=== PATIENT | female | born 1935 | race Caucasian/White ===

== ENCOUNTER 2020-04-21 10:53 | Inpatient (IN) | payer MEDICAID, SELFPAY ==
[~2020-04-21] VITALS: Ht 152.4 cm; Wt 82.8 kg
[2020-04-21 11:51] LABS: BASOPHILS % 0.4 % (0.0-2.0); HEMATOCRIT. 42.6 % (36.0-48.0); HEMOGLOBIN. 14.1 g/dL (12.0-16.0); LYMPHOCYTES % 8.1 % (20.0-50.0); MEAN CORPUSCULAR HEMOGLOBIN 29.7 pg (28.0-32.0); MEAN CORPUSCULAR VOLUME 89.5 fL (81.0-99.0); MEAN PLATELET VOLUME 8.5 fl (7.4-10.4); MONOCYTES % 3.2 % (2.0-8.0); NEUTROPHILS % 88.3 % (40.0-76.0); PLATELET 349 x1000/uL (130-400); RED BLOOD CELL COUNT 4.75 mill/uL (4.2-5.4); RED CELL DISTRIBUTION WIDTH 14.6 % (11.6-14.6)
[2020-04-21 12:31] LABS: CLARITY URINE CLOUDY (CLEAR); COLOR URINE DARK YELLOW (YELLOW); KETONES URINE 1+ (NEGATIVE); LEUKOCYTE ESTERASE URINE 1+ (NEGATIVE); NITRITE URINE NEGATIVE (NEGATIVE); OCCULT BLOOD URINE TRACE (NEGATIVE); PROTEIN URINE 3+ (NEGATIVE)
[2020-04-21 13:01] LABS: BG BASE EXCESS -0.4 mmol/L (-2.0-2.0); BG CARBOXYHEMOGLOBIN 1.4 % (0.5-1.5); BG DEOXYHEMOGLOBIN 18.1 % (0.0-5.0); BG HCO3 ACT 23.5 mmol/L (22.0-26.0); BG OXYGEN SATURATION 81.6 % (92.0-98.5); BG OXYHEMOGLOBIN 80.5 % (94.0-97.0); BG PCO2 36.4 mmHg (35.0-45.0); BG PH 7.427 (7.350-7.450); BG SAMPLE SITE RIGHT RADIAL; BG TOTAL HEMOGLOBIN 14.9 g/dL (12.0-18.0)
[2020-04-21] MEDS ORDERED: MAGNESIUM/ALUMINUM HYDROXIDE/SIMETHICONE 30ML UDC PO PRN (13:30)
[2020-04-21] MEDS ORDERED: ACETAMINOPHEN 325MG TABLET PO PRN (13:30)
[2020-04-21] MEDS ORDERED: KETOROLAC 15MG/ML VIAL IV PRN (13:30)
[2020-04-21] MEDS ORDERED: ALBUTEROL 6.7GM HFA INHALER ORI PRN (13:30)
[2020-04-21] MEDS ORDERED: CLONIDINE 0.1MG TABLET PO PRN (13:30)
[2020-04-21] MEDS ORDERED: NITROGLYCERIN 0.4MG TABLET SL SL PRN (13:30)
[2020-04-21] MEDS ORDERED: ENOXAPARIN 40MG/0.4ML SYR SUBCUT SCH (13:30)
[2020-04-21] MEDS ORDERED: DOCUSATE SODIUM 100MG CAPSULE PO PRN (13:30)
[2020-04-21] MEDS ORDERED: ONDANSETRON HCL 4MG/2ML INJ IV PRN (13:30)
[2020-04-21] MEDS: DEXAMETHASONE 10 MG/ML VIAL IV SCH (14:00)
[2020-04-21] MEDS ORDERED: AZITHROMYCIN 500 MG in DEXT 5% WATER 250 ML IV SCH (14:00)
[2020-04-21] MEDS ORDERED: CEFTRIAXONE 1 G PREMIX 50 ML IV SCH (14:00)
[2020-04-21 14:51] LABS: CHLORIDE 101 mEq/L (98-107)
[2020-04-21 15:00] LABS: CREATINE KINASE 110 IU/L (26-192); CREATINE KINASE MB FRACTION 3.2 ng/mL (0.5-3.6)
[2020-04-21 15:01] LABS: D-DIMER 6.67 mg/L FEU (<0.50); PROTHROMBIN TIME 10.6 sec (9.6-11.0)
[2020-04-21] MEDS: ALBUTEROL 6.7GM HFA INHALER ORI SCH ×2 (15:30→20:26)
[2020-04-21] MEDS: DILTIAZEM HCL 60MG TABLET PO SCH (18:00)
[2020-04-21] MEDS: GUAIFENESIN/DM 600MG/30MG ER TAB 12HR PO SCH (21:00)
[2020-04-21] MEDS: FAMOTIDINE 20MG TABLET PO SCH (21:00)
[2020-04-21] MEDS: ASCORBIC ACID 500 MG TABLET PO SCH (21:00)
[2020-04-22] MEDS: ENOXAPARIN 30MG/0.3ML SYR SUBCUT SCH ×2 (04:58→11:04)
[2020-04-22] MEDS: ZOLPIDEM TARTRATE 5MG TABLET PO PRN (05:15)
[2020-04-22] MEDS: DILTIAZEM HCL 60MG TABLET PO SCH ×4 (05:57→17:44)
[2020-04-22] MEDS: ALBUTEROL 6.7GM HFA INHALER ORI SCH ×4 (08:40→21:20)
[2020-04-22] MEDS: FAMOTIDINE 20MG TABLET PO SCH ×2 (09:00→21:00)
[2020-04-22] MEDS: GUAIFENESIN/DM 600MG/30MG ER TAB 12HR PO SCH ×2 (09:00→21:00)
[2020-04-22] MEDS: ASCORBIC ACID 500 MG TABLET PO SCH ×2 (09:00→21:00)
[2020-04-22] MEDS: ZINC SULFATE 220 MG ( 50 ) CAPSULE PO SCH (09:00)
[2020-04-22] MEDS: ASPIRIN 325MG EC TABLET PO SCH (09:00)
[2020-04-22 09:50] VITALS: BP 124/65
[2020-04-22 10:30] VITALS: BP 109/50
[2020-04-22] MEDS ORDERED: FUROSEMIDE 40MG/4ML VIAL IVP NR (10:30)
[2020-04-22] MEDS: DEXAMETHASONE 10 MG/ML VIAL IV SCH (10:58)
[2020-04-22 11:08] LABS: BG BASE EXCESS 4.1 mmol/L (-2.0-2.0); BG CARBOXYHEMOGLOBIN 0.9 % (0.5-1.5); BG DEOXYHEMOGLOBIN 12.3 % (0.0-5.0); BG FRACTION INSPIRED OXYGEN 100; BG HCO3 ACT 28.6 mmol/L (22.0-26.0); BG OXYGEN SATURATION 87.6 % (92.0-98.5); BG OXYHEMOGLOBIN 86.8 % (94.0-97.0); BG PCO2 42.3 mmHg (35.0-45.0); BG PH 7.448 (7.350-7.450); BG PO2 52.7 mmHg (75.0-100.0); BG SAMPLE SITE RIGHT BRACHIAL; BG TOTAL HEMOGLOBIN 14.2 g/dL (12.0-18.0); BG TOTAL RESPIRATORY RATE 25 b/min; BG VENT MODE MASK - BIPAP
[2020-04-22 12:00] VITALS: BP 111/64
[2020-04-22] MEDS: AZITHROMYCIN 500 MG in DEXT 5% WATER 250 ML IV SCH (13:39)
[2020-04-22] MEDS: CEFTRIAXONE 1,000 MG in DEXTROSE 5% WATER 50 ML IV SCH (13:40)
[2020-04-22 16:00] VITALS: BP 128/50
[2020-04-22] MEDS ORDERED: AMLO5TAB88 MT (18:40)
[2020-04-22] MEDS ORDERED: TELM80TA8 MT (18:40)
[2020-04-22 20:00] VITALS: BP 139/75
[2020-04-22] MEDS: ENOXAPARIN 40MG/0.4ML SYR SUBCUT SCH (21:06)
[2020-04-23] VITALS: BP 148/65
[2020-04-23] MEDS: ALBUTEROL 6.7GM HFA INHALER ORI SCH ×4 (00:20→13:28)
[2020-04-23 04:00] VITALS: BP 124/61
[2020-04-23] MEDS: DILTIAZEM HCL 60MG TABLET PO SCH ×4 (05:28→17:59)
[2020-04-23 08:00] VITALS: BP 140/59
[2020-04-23] MEDS: DEXAMETHASONE 10 MG/ML VIAL IV SCH (08:47)
[2020-04-23] MEDS: ENOXAPARIN 40MG/0.4ML SYR SUBCUT SCH (08:49)
[2020-04-23] MEDS: GUAIFENESIN/DM 600MG/30MG ER TAB 12HR PO SCH ×2 (10:31→21:00)
[2020-04-23] MEDS: ZINC SULFATE 220 MG ( 50 ) CAPSULE PO SCH (10:31)
[2020-04-23] MEDS: ASCORBIC ACID 500 MG TABLET PO SCH ×2 (10:31→20:39)
[2020-04-23] MEDS: FAMOTIDINE 20MG TABLET PO SCH ×2 (10:31→20:39)
[2020-04-23] MEDS: ASPIRIN 325MG EC TABLET PO SCH (10:31)
[2020-04-23] MEDS: CEFTRIAXONE 1,000 MG in DEXTROSE 5% WATER 50 ML IV SCH (14:19)
[2020-04-23] MEDS: AZITHROMYCIN 500 MG in DEXT 5% WATER 250 ML IV SCH (15:09)
[2020-04-23 16:00] VITALS: BP 129/67
[2020-04-23] MEDS: GUAIFENESIN 200MG/10ML SUGAR FREE UDC PO PRN (23:22)
[2020-04-23] MEDS: ENOXAPARIN 30MG/0.3ML SYR SUBCUT SCH (23:22)
[2020-04-24 01:00] VITALS: BP 124/51
[2020-04-24] MEDS: DILTIAZEM HCL 60MG TABLET PO SCH ×4 (06:17→18:12)
[2020-04-24] MEDS: ALBUTEROL 6.7GM HFA INHALER ORI SCH ×4 (07:40→21:40)
[2020-04-24 08:00] VITALS: BP 158/62
[2020-04-24] MEDS: GUAIFENESIN/DM 600MG/30MG ER TAB 12HR PO SCH ×2 (09:00→21:00)
[2020-04-24] MEDS: DEXAMETHASONE 10 MG/ML VIAL IV SCH (10:44)
[2020-04-24] MEDS: ASPIRIN 325MG EC TABLET PO SCH (10:44)
[2020-04-24] MEDS: ENOXAPARIN 30MG/0.3ML SYR SUBCUT SCH ×2 (10:44→21:36)
[2020-04-24] MEDS: FAMOTIDINE 20MG TABLET PO SCH ×2 (10:44→21:35)
[2020-04-24] MEDS: ZINC SULFATE 220 MG ( 50 ) CAPSULE PO SCH (10:45)
[2020-04-24 12:00] VITALS: BP 123/73
[2020-04-24] MEDS: ASCORBIC ACID 500 MG TABLET PO SCH ×2 (15:12→21:35)
[2020-04-24] MEDS: CEFTRIAXONE 1,000 MG in DEXTROSE 5% WATER 50 ML IV SCH (15:13)
[2020-04-24 16:00] VITALS: BP 146/57
[2020-04-24] MEDS: AZITHROMYCIN 500 MG in DEXT 5% WATER 250 ML IV SCH (16:40)
[2020-04-24 20:00] VITALS: BP 133/62
[2020-04-25] VITALS: BP 143/65
[2020-04-25] MEDS: ALBUTEROL 6.7GM HFA INHALER ORI SCH ×4 (01:18→21:22)
[2020-04-25 04:00] VITALS: BP 143/65
[2020-04-25] MEDS: DILTIAZEM HCL 60MG TABLET PO SCH ×5 (06:46→18:00)
[2020-04-25 07:40] LABS: HEMATOCRIT. 42.2 % (36.0-48.0); HEMOGLOBIN. 13.5 g/dL (12.0-16.0); MEAN CORPUSCULAR HEMOGLOBIN 29.3 pg (28.0-32.0); MEAN CORPUSCULAR VOLUME 91.4 fL (81.0-99.0); MEAN PLATELET VOLUME 9.2 fl (7.4-10.4); PLATELET 264 x1000/uL (130-400); RED BLOOD CELL COUNT 4.62 mill/uL (4.2-5.4); RED CELL DISTRIBUTION WIDTH 14.3 % (11.6-14.6)
[2020-04-25 08:00] VITALS: BP 152/63
[2020-04-25 08:52] LABS: CHLORIDE 106 mEq/L (98-107)
[2020-04-25] MEDS: DEXAMETHASONE 10 MG/ML VIAL IV SCH (09:13)
[2020-04-25] MEDS: ASPIRIN 325MG EC TABLET PO SCH (09:13)
[2020-04-25] MEDS: FAMOTIDINE 20MG TABLET PO SCH ×2 (09:13→21:21)
[2020-04-25] MEDS: GUAIFENESIN/DM 600MG/30MG ER TAB 12HR PO SCH ×2 (09:13→21:00)
[2020-04-25] MEDS: ZINC SULFATE 220 MG ( 50 ) CAPSULE PO SCH (09:13)
[2020-04-25] MEDS: GUAIFENESIN 200MG/10ML SUGAR FREE UDC PO PRN (09:13)
[2020-04-25] MEDS: ASCORBIC ACID 500 MG TABLET PO SCH ×2 (09:13→21:21)
[2020-04-25] MEDS: ENOXAPARIN 30MG/0.3ML SYR SUBCUT SCH ×2 (09:14→21:21)
[2020-04-25 11:53] LABS: BG BASE EXCESS 2.3 mmol/L (-2.0-2.0); BG CARBOXYHEMOGLOBIN 0.8 % (0.5-1.5); BG DEOXYHEMOGLOBIN 5.7 % (0.0-5.0); BG FRACTION INSPIRED OXYGEN 90; BG HCO3 ACT 26.3 mmol/L (22.0-26.0); BG METHEMOGLOBIN 0.3 % (0.0-1.5); BG OXYGEN SATURATION 94.2 % (92.0-98.5); BG OXYHEMOGLOBIN 93.2 % (94.0-97.0); BG PH 7.447 (7.350-7.450); BG PO2 71.7 mmHg (75.0-100.0); BG SAMPLE SITE RIGHT BRACHIAL; BG TOTAL HEMOGLOBIN 13.6 g/dL (12.0-18.0); BG TOTAL RESPIRATORY RATE 24 b/min
[2020-04-25 12:00] VITALS: BP 138/76
[2020-04-25] MEDS: AZITHROMYCIN 500 MG in DEXT 5% WATER 250 ML IV SCH (15:25)
[2020-04-25 16:00] VITALS: BP 138/76
[2020-04-25] MEDS: CEFTRIAXONE 1,000 MG in DEXTROSE 5% WATER 50 ML IV SCH (18:42)
[2020-04-25 20:00] VITALS: BP 126/60
[2020-04-26] VITALS: BP 120/94
[2020-04-26] MEDS: ZOLPIDEM TARTRATE 5MG TABLET PO PRN (01:42)
[2020-04-26] MEDS: DILTIAZEM HCL 60MG TABLET PO SCH ×4 (01:42→18:00)
[2020-04-26 04:00] VITALS: BP 146/61
[2020-04-26] MEDS: ALBUTEROL 6.7GM HFA INHALER ORI SCH ×4 (06:01→21:29)
[2020-04-26 08:00] VITALS: BP 112/61
[2020-04-26] MEDS: DEXAMETHASONE 10 MG/ML VIAL IV SCH (09:00)
[2020-04-26] MEDS: GUAIFENESIN/DM 600MG/30MG ER TAB 12HR PO SCH ×2 (09:00→21:00)
[2020-04-26] MEDS: ENOXAPARIN 30MG/0.3ML SYR SUBCUT SCH ×2 (10:22→23:01)
[2020-04-26] MEDS: FAMOTIDINE 20MG TABLET PO SCH ×2 (10:22→23:00)
[2020-04-26] MEDS: ASCORBIC ACID 500 MG TABLET PO SCH ×2 (10:22→23:00)
[2020-04-26] MEDS: ASPIRIN 325MG EC TABLET PO SCH (10:23)
[2020-04-26] MEDS: ZINC SULFATE 220 MG ( 50 ) CAPSULE PO SCH (10:23)
[2020-04-26 12:00] VITALS: BP 151/74
[2020-04-26 14:49] LABS: PLATELET ESTIMATE NORMAL
[2020-04-26 16:00] VITALS: BP_SYST 156
[2020-04-26 20:00] VITALS: BP 131/56
[2020-04-27] VITALS: BP 136/52
[2020-04-27] MEDS: DILTIAZEM HCL 60MG TABLET PO SCH ×4 (00:52→18:16)
[2020-04-27 04:00] VITALS: BP 132/48
[2020-04-27] MEDS: ALBUTEROL 6.7GM HFA INHALER ORI SCH ×4 (04:29→21:48)
[2020-04-27 08:00] VITALS: BP 147/53
[2020-04-27] MEDS: GUAIFENESIN/DM 600MG/30MG ER TAB 12HR PO SCH ×2 (09:00→21:00)
[2020-04-27] MEDS: ZINC SULFATE 220 MG ( 50 ) CAPSULE PO SCH (11:22)
[2020-04-27] MEDS: FAMOTIDINE 20MG TABLET PO SCH ×2 (11:22→22:52)
[2020-04-27] MEDS: ASPIRIN 325MG EC TABLET PO SCH (11:22)
[2020-04-27] MEDS: ASCORBIC ACID 500 MG TABLET PO SCH ×2 (11:22→22:52)
[2020-04-27] MEDS: DEXAMETHASONE 10 MG/ML VIAL IV SCH (11:22)
[2020-04-27] MEDS: ENOXAPARIN 30MG/0.3ML SYR SUBCUT SCH ×2 (11:23→22:52)
[2020-04-27 12:00] VITALS: BP 132/53
[2020-04-27 16:00] VITALS: BP 129/49
[2020-04-27 20:00] VITALS: BP 125/55
[2020-04-28] VITALS: BP 155/65
[2020-04-28] MEDS: ALBUTEROL 6.7GM HFA INHALER ORI SCH ×4 (01:44→21:44)
[2020-04-28 04:00] VITALS: BP 117/59
[2020-04-28] MEDS: DILTIAZEM HCL 60MG TABLET PO SCH ×4 (06:00→18:00)
[2020-04-28 08:00] VITALS: BP 125/66
[2020-04-28] MEDS: GUAIFENESIN/DM 600MG/30MG ER TAB 12HR PO SCH ×2 (08:58→23:14)
[2020-04-28] MEDS: FAMOTIDINE 20MG TABLET PO SCH ×2 (08:58→23:13)
[2020-04-28] MEDS: ENOXAPARIN 30MG/0.3ML SYR SUBCUT SCH ×2 (08:58→23:13)
[2020-04-28] MEDS: ASPIRIN 325MG EC TABLET PO SCH (08:58)
[2020-04-28] MEDS: ZINC SULFATE 220 MG ( 50 ) CAPSULE PO SCH (08:58)
[2020-04-28] MEDS: ASCORBIC ACID 500 MG TABLET PO SCH ×2 (08:58→23:13)
[2020-04-28] MEDS: DEXAMETHASONE 10 MG/ML VIAL IV SCH (09:18)
[2020-04-28 11:27] LABS: BG BASE EXCESS 4.4 mmol/L (-2.0-2.0); BG CARBOXYHEMOGLOBIN 0.6 % (0.5-1.5); BG DEOXYHEMOGLOBIN 2.1 % (0.0-5.0); BG FRACTION INSPIRED OXYGEN 90; BG HCO3 ACT 30.7 mmol/L (22.0-26.0); BG METHEMOGLOBIN 0.2 % (0.0-1.5); BG OXYGEN SATURATION 97.9 % (92.0-98.5); BG OXYHEMOGLOBIN 97.1 % (94.0-97.0); BG PCO2 52.8 mmHg (35.0-45.0); BG PH 7.382 (7.350-7.450); BG PO2 111.6 mmHg (75.0-100.0); BG SAMPLE SITE RIGHT RADIAL; BG TOTAL HEMOGLOBIN 13.6 g/dL (12.0-18.0); BG TOTAL RESPIRATORY RATE 28 b/min; BG VENT MODE MASK - BIPAP
[2020-04-28 12:00] VITALS: BP 147/69
[2020-04-28 16:00] VITALS: BP 132/72
[2020-04-28 20:00] VITALS: BP 124/58
[2020-04-29 00:18] VITALS: BP 112/52
[2020-04-29 04:00] VITALS: BP 116/78
[2020-04-29] MEDS: ALBUTEROL 6.7GM HFA INHALER ORI SCH ×5 (05:25→21:46)
[2020-04-29] MEDS: DILTIAZEM HCL 60MG TABLET PO SCH ×4 (06:04→16:59)
[2020-04-29 08:00] VITALS: BP 126/58
[2020-04-29] MEDS: ASCORBIC ACID 500 MG TABLET PO SCH ×2 (10:29→21:39)
[2020-04-29] MEDS: GUAIFENESIN/DM 600MG/30MG ER TAB 12HR PO SCH ×2 (10:29→21:39)
[2020-04-29] MEDS: ASPIRIN 325MG EC TABLET PO SCH (10:29)
[2020-04-29] MEDS: ENOXAPARIN 30MG/0.3ML SYR SUBCUT SCH ×2 (10:30→21:39)
[2020-04-29] MEDS: ZINC SULFATE 220 MG ( 50 ) CAPSULE PO SCH (10:30)
[2020-04-29] MEDS: FAMOTIDINE 20MG TABLET PO SCH ×2 (10:30→21:39)
[2020-04-29] MEDS: DEXAMETHASONE 10 MG/ML VIAL IV SCH (10:31)
[2020-04-29 12:00] VITALS: BP 133/54
[2020-04-29 16:00] VITALS: BP 111/42
[2020-04-29 20:00] VITALS: BP_SYST 149; BP_SYST 154; BP_DIAS 69; BP_DIAS 81
[2020-04-30] VITALS: BP 134/44
[2020-04-30] MEDS: DILTIAZEM HCL 60MG TABLET PO SCH ×4 (00:41→18:00)
[2020-04-30 04:00] VITALS: BP 132/66
[2020-04-30] MEDS: ALBUTEROL 6.7GM HFA INHALER ORI SCH ×4 (04:50→22:37)
[2020-04-30 08:00] VITALS: BP 149/62
[2020-04-30] MEDS: ZINC SULFATE 220 MG ( 50 ) CAPSULE PO SCH (08:46)
[2020-04-30] MEDS: DEXAMETHASONE 10 MG/ML VIAL IV SCH (08:46)
[2020-04-30] MEDS: ENOXAPARIN 30MG/0.3ML SYR SUBCUT SCH ×2 (08:47→21:35)
[2020-04-30] MEDS: GUAIFENESIN/DM 600MG/30MG ER TAB 12HR PO SCH ×2 (08:47→21:34)
[2020-04-30] MEDS: ASCORBIC ACID 500 MG TABLET PO SCH ×2 (08:47→21:34)
[2020-04-30] MEDS: FAMOTIDINE 20MG TABLET PO SCH ×2 (08:47→21:34)
[2020-04-30] MEDS: ASPIRIN 325MG EC TABLET PO SCH (08:47)
[2020-04-30 12:00] VITALS: BP 166/56
[2020-04-30 16:00] VITALS: BP 122/36
[2020-04-30 20:00] VITALS: BP 127/61
[2020-05-01] VITALS: BP 128/66
[2020-05-01] MEDS: DILTIAZEM HCL 60MG TABLET PO SCH ×3 (00:42→12:00)
[2020-05-01] MEDS: ALBUTEROL 6.7GM HFA INHALER ORI SCH ×4 (01:38→21:00)
[2020-05-01 04:00] VITALS: BP 132/67
[2020-05-01 08:00] VITALS: BP 141/53
[2020-05-01] MEDS: DEXAMETHASONE 10 MG/ML VIAL IV SCH (10:05)
[2020-05-01] MEDS: GUAIFENESIN/DM 600MG/30MG ER TAB 12HR PO SCH ×2 (10:05→20:08)
[2020-05-01] MEDS: FAMOTIDINE 20MG TABLET PO SCH ×2 (10:05→20:09)
[2020-05-01] MEDS: ASPIRIN 325MG EC TABLET PO SCH (10:06)
[2020-05-01] MEDS: ZINC SULFATE 220 MG ( 50 ) CAPSULE PO SCH (10:06)
[2020-05-01] MEDS: ASCORBIC ACID 500 MG TABLET PO SCH ×2 (10:06→20:09)
[2020-05-01] MEDS: ENOXAPARIN 30MG/0.3ML SYR SUBCUT SCH ×2 (10:07→20:09)
[2020-05-01 12:00] VITALS: BP 152/68
[2020-05-01] MEDS ORDERED: CLONIDINE 0.1MG TABLET PO PRN (13:15)
[2020-05-01] MEDS: HYDRALAZINE HCL 50MG TABLET PO SCH ×2 (15:16→22:13)
[2020-05-01 16:00] VITALS: BP 149/62
[2020-05-01 20:00] VITALS: BP 98/51
[2020-05-02] VITALS: BP 153/51
[2020-05-02 04:00] VITALS: BP 164/85
[2020-05-02] MEDS: ALBUTEROL 6.7GM HFA INHALER ORI SCH ×5 (05:10→21:37)
[2020-05-02] MEDS: HYDRALAZINE HCL 50MG TABLET PO SCH ×3 (06:40→21:58)
[2020-05-02 08:00] VITALS: BP 140/71
[2020-05-02] MEDS: ZINC SULFATE 220 MG ( 50 ) CAPSULE PO SCH (08:51)
[2020-05-02] MEDS: GUAIFENESIN/DM 600MG/30MG ER TAB 12HR PO SCH ×2 (08:51→21:58)
[2020-05-02] MEDS: ASPIRIN 325MG EC TABLET PO SCH (08:51)
[2020-05-02] MEDS: FAMOTIDINE 20MG TABLET PO SCH ×2 (08:51→21:58)
[2020-05-02] MEDS: DEXAMETHASONE 10 MG/ML VIAL IV SCH (08:51)
[2020-05-02] MEDS: ASCORBIC ACID 500 MG TABLET PO SCH ×2 (08:51→21:58)
[2020-05-02] MEDS: ENOXAPARIN 40MG/0.4ML SYR SUBCUT SCH (08:53)
[2020-05-02 12:00] VITALS: BP 134/69
[2020-05-02 16:00] VITALS: BP 132/71
[2020-05-02 20:00] VITALS: BP 124/50
[2020-05-03] VITALS: BP 108/53
[2020-05-03] MEDS: ALBUTEROL 6.7GM HFA INHALER ORI SCH ×3 (02:17→14:05)
[2020-05-03 04:00] VITALS: BP 151/60
[2020-05-03] MEDS: HYDRALAZINE HCL 50MG TABLET PO SCH ×3 (05:50→22:33)
[2020-05-03] MEDS: ENOXAPARIN 40MG/0.4ML SYR SUBCUT SCH (07:55)
[2020-05-03] MEDS: ASCORBIC ACID 500 MG TABLET PO SCH ×2 (07:56→22:33)
[2020-05-03] MEDS: ASPIRIN 325MG EC TABLET PO SCH (07:56)
[2020-05-03] MEDS: ZINC SULFATE 220 MG ( 50 ) CAPSULE PO SCH (07:56)
[2020-05-03] MEDS: DEXAMETHASONE 10 MG/ML VIAL IV SCH (07:56)
[2020-05-03] MEDS: FAMOTIDINE 20MG TABLET PO SCH ×2 (07:56→22:34)
[2020-05-03] MEDS: GUAIFENESIN/DM 600MG/30MG ER TAB 12HR PO SCH ×2 (07:56→22:33)
[2020-05-03 08:00] VITALS: BP 140/82
[2020-05-03 12:00] VITALS: BP 120/48
[2020-05-03 16:00] VITALS: BP 129/60
[2020-05-03 20:00] VITALS: BP 125/54
[2020-05-04] VITALS: BP 122/50
[2020-05-04] MEDS: ALBUTEROL 6.7GM HFA INHALER ORI SCH ×4 (02:50→13:17)
[2020-05-04 04:00] VITALS: BP 126/52
[2020-05-04] MEDS: HYDRALAZINE HCL 50MG TABLET PO SCH ×3 (05:12→21:46)
[2020-05-04 08:00] VITALS: BP 121/48
[2020-05-04] MEDS: ENOXAPARIN 40MG/0.4ML SYR SUBCUT SCH (08:23)
[2020-05-04] MEDS: GUAIFENESIN/DM 600MG/30MG ER TAB 12HR PO SCH ×2 (08:24→20:27)
[2020-05-04] MEDS: ZINC SULFATE 220 MG ( 50 ) CAPSULE PO SCH (08:24)
[2020-05-04] MEDS: FAMOTIDINE 20MG TABLET PO SCH ×2 (08:24→20:27)
[2020-05-04] MEDS: ASPIRIN 325MG EC TABLET PO SCH (08:24)
[2020-05-04] MEDS: ASCORBIC ACID 500 MG TABLET PO SCH ×2 (08:26→20:27)
[2020-05-04 12:00] VITALS: BP 101/50
[2020-05-04 16:00] VITALS: BP 118/58
[2020-05-04] MEDS ORDERED: FENTANYL CITRATE/PF 1,000 MCG in SODIUM CHLORIDE 0.9% 80 ML IV PRN (17:00)
[2020-05-04] MEDS ORDERED: MIDAZOLAM HCL 100 MG in DEXT 5% WATER 80 ML IV PRN (17:00)
[2020-05-04 20:00] VITALS: BP 122/63
[2020-05-05] VITALS: BP 129/70
[2020-05-05] MEDS: ALBUTEROL 6.7GM HFA INHALER ORI SCH ×3 (04:20→15:00)
[2020-05-05] MEDS: HYDRALAZINE HCL 50MG TABLET PO SCH ×3 (06:00→21:39)
[2020-05-05 07:42] LABS: HEMATOCRIT. 39.6 % (36.0-48.0); MEAN CORPUSCULAR HEMOGLOBIN 29.6 pg (28.0-32.0); MEAN CORPUSCULAR VOLUME 90.4 fL (81.0-99.0); MEAN PLATELET VOLUME 10.3 fl (7.4-10.4); PLATELET 211 x1000/uL (130-400); RED BLOOD CELL COUNT 4.39 mill/uL (4.2-5.4); RED CELL DISTRIBUTION WIDTH 14.5 % (11.6-14.6)
[2020-05-05 08:00] VITALS: BP 116/55
[2020-05-05] MEDS: FAMOTIDINE 20MG TABLET PO SCH ×2 (08:48→21:38)
[2020-05-05] MEDS: GUAIFENESIN/DM 600MG/30MG ER TAB 12HR PO SCH ×2 (08:48→21:39)
[2020-05-05] MEDS: ASPIRIN 325MG EC TABLET PO SCH (08:48)
[2020-05-05] MEDS: ASCORBIC ACID 500 MG TABLET PO SCH ×2 (08:48→21:39)
[2020-05-05] MEDS: ZINC SULFATE 220 MG ( 50 ) CAPSULE PO SCH (08:48)
[2020-05-05] MEDS: ENOXAPARIN 40MG/0.4ML SYR SUBCUT SCH ×2 (08:49→09:00)
[2020-05-05 12:00] VITALS: BP 123/49
[2020-05-05 14:31] LABS: BG CARBOXYHEMOGLOBIN 0.3 % (0.5-1.5); BG DEOXYHEMOGLOBIN 2.2 % (0.0-5.0); BG FRACTION INSPIRED OXYGEN 60; BG HCO3 ACT 25.1 mmol/L (22.0-26.0); BG METHEMOGLOBIN 0.1 % (0.0-1.5); BG OXYGEN SATURATION 97.8 % (92.0-98.5); BG OXYHEMOGLOBIN 97.4 % (94.0-97.0); BG PCO2 38.3 mmHg (35.0-45.0); BG PH 7.434 (7.350-7.450); BG PO2 107.5 mmHg (75.0-100.0); BG SAMPLE SITE RIGHT RADIAL; BG TOTAL HEMOGLOBIN 13.8 g/dL (12.0-18.0); BG TOTAL RESPIRATORY RATE 24 b/min; BG VENT MODE MASK - BIPAP
[2020-05-05 16:00] VITALS: BP 123/49
[2020-05-05 18:01] LABS: PLATELET ESTIMATE NORMAL
[2020-05-05 20:00] VITALS: BP 110/58
[2020-05-06] VITALS: BP 96/52
[2020-05-06 04:00] VITALS: BP 128/54
[2020-05-06] MEDS: HYDRALAZINE HCL 50MG TABLET PO SCH ×3 (05:48→21:37)
[2020-05-06 08:00] VITALS: BP 134/73
[2020-05-06] MEDS: ZINC SULFATE 220 MG ( 50 ) CAPSULE PO SCH (08:36)
[2020-05-06] MEDS: ENOXAPARIN 40MG/0.4ML SYR SUBCUT SCH (08:36)
[2020-05-06] MEDS: ASCORBIC ACID 500 MG TABLET PO SCH ×2 (08:36→21:37)
[2020-05-06] MEDS: ASPIRIN 325MG EC TABLET PO SCH (08:36)
[2020-05-06] MEDS: GUAIFENESIN/DM 600MG/30MG ER TAB 12HR PO SCH ×2 (08:37→21:00)
[2020-05-06] MEDS: FAMOTIDINE 20MG TABLET PO SCH ×2 (08:37→21:37)
[2020-05-06] MEDS: ALBUTEROL 6.7GM HFA INHALER ORI SCH ×3 (08:37→21:35)
[2020-05-06 12:00] VITALS: BP 142/64
[2020-05-06 16:00] VITALS: BP 132/48
[2020-05-06 20:00] VITALS: BP 141/58
[2020-05-07] VITALS: BP 136/58
[2020-05-07] MEDS: ALBUTEROL 6.7GM HFA INHALER ORI SCH ×4 (03:00→21:00)
[2020-05-07 04:00] VITALS: BP 152/86
[2020-05-07 05:37] LABS: CHLORIDE 105 mEq/L (98-107)
[2020-05-07] MEDS: HYDRALAZINE HCL 50MG TABLET PO SCH ×2 (05:57→14:00)
[2020-05-07 06:26] LABS: HEMATOCRIT 39.8 % (36.0-48.0); HEMOGLOBIN 13.4 g/dL (12.0-16.0); MEAN CORPUSCULAR HEMOGLOBIN 30.4 pg (28.0-32.0); MEAN CORPUSCULAR VOLUME 90.4 fL (81.0-99.0); PLATELET 206 x1000/uL (130-400); RED BLOOD CELL COUNT 4.41 mill/uL (4.2-5.4); RED CELL DISTRIBUTION WIDTH 14.4 % (11.6-14.6)
[2020-05-07 08:00] VITALS: BP_SYST 105; BP_SYST 115; BP_DIAS 50; BP_DIAS 57
[2020-05-07] MEDS: GUAIFENESIN/DM 600MG/30MG ER TAB 12HR PO SCH (09:16)
[2020-05-07] MEDS: ASPIRIN 325MG EC TABLET PO SCH (09:16)
[2020-05-07] MEDS: ZINC SULFATE 220 MG ( 50 ) CAPSULE PO SCH (09:16)
[2020-05-07] MEDS: ENOXAPARIN 40MG/0.4ML SYR SUBCUT SCH (09:16)
[2020-05-07] MEDS: ASCORBIC ACID 500 MG TABLET PO SCH (09:16)
[2020-05-07] MEDS: FAMOTIDINE 20MG TABLET PO SCH (09:16)
[2020-05-07 12:00] VITALS: BP 105/37
[2020-05-07 16:00] VITALS: BP 107/45
[2020-05-07 20:00] VITALS: BP 130/61
[2020-05-08] VITALS: BP 127/91
[2020-05-08] MEDS: GUAIFENESIN/DM 600MG/30MG ER TAB 12HR PO SCH ×3 (00:07→21:11)
[2020-05-08] MEDS: FAMOTIDINE 20MG TABLET PO SCH ×3 (00:08→21:11)
[2020-05-08] MEDS: HYDRALAZINE HCL 50MG TABLET PO SCH ×4 (00:08→21:32)
[2020-05-08] MEDS: ASCORBIC ACID 500 MG TABLET PO SCH ×3 (00:09→21:11)
[2020-05-08] MEDS: ALBUTEROL 6.7GM HFA INHALER ORI SCH ×4 (03:00→21:26)
[2020-05-08 04:00] VITALS: BP 124/60
[2020-05-08 08:00] VITALS: BP 141/57
[2020-05-08] MEDS: ASPIRIN 325MG EC TABLET PO SCH (09:19)
[2020-05-08] MEDS: ZINC SULFATE 220 MG ( 50 ) CAPSULE PO SCH (09:19)
[2020-05-08] MEDS: ENOXAPARIN 40MG/0.4ML SYR SUBCUT SCH (09:19)
[2020-05-08 12:00] VITALS: BP_SYST 113; BP_DIAS 63; BP_DIAS 65
[2020-05-08 16:00] VITALS: BP 137/57
[2020-05-08] MEDS: ACETAMINOPHEN 325MG TABLET PO PRN (17:42)
[2020-05-08 20:00] VITALS: BP 102/47
[2020-05-09] VITALS: BP 110/53
[2020-05-09] MEDS: ALBUTEROL 6.7GM HFA INHALER ORI SCH ×4 (03:22→20:38)
[2020-05-09 04:00] VITALS: BP 116/39
[2020-05-09] MEDS: HYDRALAZINE HCL 50MG TABLET PO SCH ×3 (05:34→21:07)
[2020-05-09 08:00] VITALS: BP 142/68
[2020-05-09] MEDS: FAMOTIDINE 20MG TABLET PO SCH ×2 (09:23→21:08)
[2020-05-09] MEDS: ZINC SULFATE 220 MG ( 50 ) CAPSULE PO SCH (09:24)
[2020-05-09] MEDS: ASCORBIC ACID 500 MG TABLET PO SCH ×2 (09:24→21:07)
[2020-05-09] MEDS: ASPIRIN 325MG EC TABLET PO SCH (09:24)
[2020-05-09] MEDS: GUAIFENESIN/DM 600MG/30MG ER TAB 12HR PO SCH ×2 (09:24→21:07)
[2020-05-09] MEDS: ENOXAPARIN 40MG/0.4ML SYR SUBCUT SCH (09:24)
[2020-05-09 12:00] VITALS: BP_SYST 132; BP_SYST 142; BP_DIAS 49; BP_DIAS 68
[2020-05-09] MEDS: ACETAMINOPHEN 325MG TABLET PO PRN (13:16)
[2020-05-09 16:00] VITALS: BP 159/50
[2020-05-09 20:00] VITALS: BP 162/63
[2020-05-10] VITALS: BP 158/63
[2020-05-10] MEDS: ALBUTEROL 6.7GM HFA INHALER ORI SCH ×3 (02:52→21:00)
[2020-05-10] MEDS: HYDRALAZINE HCL 50MG TABLET PO SCH ×3 (06:38→22:30)
[2020-05-10 08:00] VITALS: BP 144/54
[2020-05-10] MEDS: GUAIFENESIN/DM 600MG/30MG ER TAB 12HR PO SCH ×2 (09:45→22:29)
[2020-05-10] MEDS: ASCORBIC ACID 500 MG TABLET PO SCH ×2 (09:45→22:29)
[2020-05-10] MEDS: ZINC SULFATE 220 MG ( 50 ) CAPSULE PO SCH (09:45)
[2020-05-10] MEDS: FAMOTIDINE 20MG TABLET PO SCH ×2 (09:45→22:29)
[2020-05-10] MEDS: ASPIRIN 325MG EC TABLET PO SCH (09:45)
[2020-05-10] MEDS: ENOXAPARIN 40MG/0.4ML SYR SUBCUT SCH (09:46)
[2020-05-10 12:00] VITALS: BP 126/58
[2020-05-10 16:00] VITALS: BP 132/64
[2020-05-10 20:00] VITALS: BP 159/66
[2020-05-11] VITALS (83 sets, daily range): BP systolic 53–172; BP diastolic 24–75
[2020-05-11 01:21] LABS: BG BASE EXCESS -12.8 mmol/L (-2.0-2.0); BG FRACTION INSPIRED OXYGEN 100; BG HCO3 ACT 17.4 mmol/L (22.0-26.0); BG METHEMOGLOBIN 0.2 % (0.0-1.5); BG OXYHEMOGLOBIN 86.8 % (94.0-97.0); BG PCO2 58.7 mmHg (35.0-45.0); BG PH 7.089 (7.350-7.450); BG PO2 66.8 mmHg (75.0-100.0); BG SAMPLE SITE LEFT FEMORAL; BG TOTAL HEMOGLOBIN 12.9 g/dL (12.0-18.0); BG VENT MODE VENT - AC
[2020-05-11] MEDS ORDERED: SODIUM BICARBONATE 8.4% 1 MEQ/ML 50ML SYR IV NR (01:30)
[2020-05-11] MEDS: NOREPINEPHRINE 32 MG in DEXT 5% WATER 218 ML IV PRN (01:55)
[2020-05-11] MEDS: PHENYLEPHRINE 100 MG in DEXT 5% WATER 240 ML IV PRN ×2 (01:55→16:02)
[2020-05-11] MEDS ORDERED: MIDAZOLAM HCL 100 MG in DEXT 5% WATER 80 ML IV PRN (02:15)
[2020-05-11] MEDS: FENTANYL CITRATE/PF 2,500 MCG in SODIUM CHLORIDE 0.9% 200 ML IV PRN (04:35)
[2020-05-11] MEDS: HYDRALAZINE HCL 50MG TABLET PO SCH (06:00)
[2020-05-11 06:12] LABS: HEMATOCRIT. 37.9 % (36.0-48.0); HEMOGLOBIN. 12.3 g/dL (12.0-16.0); MEAN CORPUSCULAR HEMOGLOBIN 29.7 pg (28.0-32.0); MEAN CORPUSCULAR VOLUME 91.9 fL (81.0-99.0); MEAN PLATELET VOLUME 9.7 fl (7.4-10.4); PLATELET 212 x1000/uL (130-400); RED BLOOD CELL COUNT 4.13 mill/uL (4.2-5.4); RED CELL DISTRIBUTION WIDTH 14.9 % (11.6-14.6)
[2020-05-11] MEDS: ENOXAPARIN 40MG/0.4ML SYR SUBCUT SCH (08:36)
[2020-05-11 10:25] LABS: BG BASE EXCESS -3.5 mmol/L (-2.0-2.0); BG CARBOXYHEMOGLOBIN 0.7 % (0.5-1.5); BG DEOXYHEMOGLOBIN 9.8 % (0.0-5.0); BG FRACTION INSPIRED OXYGEN 100; BG HCO3 ACT 21.7 mmol/L (22.0-26.0); BG METHEMOGLOBIN 0.2 % (0.0-1.5); BG OXYGEN SATURATION 90.1 % (92.0-98.5); BG OXYHEMOGLOBIN 89.3 % (94.0-97.0); BG PCO2 39.9 mmHg (35.0-45.0); BG PH 7.354 (7.350-7.450); BG PO2 56.3 mmHg (75.0-100.0); BG SAMPLE SITE RIGHT RADIAL; BG TOTAL HEMOGLOBIN 13.3 g/dL (12.0-18.0); BG TOTAL RESPIRATORY RATE 41 b/min; BG VENT MODE VENT - AC
[2020-05-11] MEDS: ASPIRIN 325MG EC TABLET PO SCH (12:28)
[2020-05-11] MEDS: FAMOTIDINE 20MG TABLET PO SCH (12:29)
[2020-05-11] MEDS: ZINC SULFATE 220 MG ( 50 ) CAPSULE PO SCH (12:29)
[2020-05-11] MEDS: ASCORBIC ACID 500 MG TABLET PO SCH ×2 (12:29→21:39)
[2020-05-11 14:12] LABS: PLATELET ESTIMATE NORMAL
[2020-05-11] MEDS: DEXT 5%/0.45% NACL 1000ML 1,000 ML IV SCH (15:55)
[2020-05-11] MEDS: FAMOTIDINE 20MG/2ML VIAL IV SCH (18:23)
[2020-05-11] MEDS ORDERED: MIDAZOLAM HCL 100 MG in SODIUM CHLORIDE 0.9% 80 ML IV PRN (20:45)
[2020-05-12] VITALS (75 sets, daily range): BP systolic 85–161; BP diastolic 24–75
[2020-05-12] MEDS: PHENYLEPHRINE 100 MG in DEXT 5% WATER 240 ML IV PRN (03:21)
[2020-05-12] MEDS: DEXT 5%/0.45% NACL 1000ML 1,000 ML IV SCH (03:59)
[2020-05-12 06:23] LABS: BASOPHILS % 0.2 % (0.0-2.0); EOSINOPHILS % 0.1 % (0.0-5.0); HEMATOCRIT. 39.7 % (36.0-48.0); HEMOGLOBIN. 12.8 g/dL (12.0-16.0); LYMPHOCYTES % 10.8 % (20.0-50.0); MEAN CORPUSCULAR HEMOGLOBIN 30.2 pg (28.0-32.0); MEAN CORPUSCULAR VOLUME 93.8 fL (81.0-99.0); MEAN PLATELET VOLUME 10.8 fl (7.4-10.4); MONOCYTES % 3.3 % (2.0-8.0); NEUTROPHILS % 85.6 % (40.0-76.0); PLATELET 150 x1000/uL (130-400); RED BLOOD CELL COUNT 4.23 mill/uL (4.2-5.4); RED CELL DISTRIBUTION WIDTH 15.8 % (11.6-14.6)
[2020-05-12] MEDS: ENOXAPARIN 40MG/0.4ML SYR SUBCUT SCH (08:53)
[2020-05-12] MEDS: FAMOTIDINE 20MG/2ML VIAL IV SCH (08:53)
[2020-05-12] MEDS: ZINC SULFATE 220 MG ( 50 ) CAPSULE PO SCH (08:54)
[2020-05-12] MEDS: ASCORBIC ACID 500 MG TABLET PO SCH (08:54)
[2020-05-12] MEDS: ASPIRIN 325MG EC TABLET PO SCH (08:54)
[2020-05-12 09:40] LABS: BG BASE EXCESS -17.9 mmol/L (-2.0-2.0); BG CARBOXYHEMOGLOBIN 0.2 % (0.5-1.5); BG DEOXYHEMOGLOBIN 3.3 % (0.0-5.0); BG FRACTION INSPIRED OXYGEN 100; BG HCO3 ACT 10.7 mmol/L (22.0-26.0); BG METHEMOGLOBIN 0.3 % (0.0-1.5); BG OXYGEN SATURATION 96.7 % (92.0-98.5); BG OXYHEMOGLOBIN 96.2 % (94.0-97.0); BG PCO2 34.6 mmHg (35.0-45.0); BG PH 7.107 (7.350-7.450); BG PO2 98.7 mmHg (75.0-100.0); BG TOTAL HEMOGLOBIN 12.9 g/dL (12.0-18.0); BG TOTAL RESPIRATORY RATE 37 b/min; BG VENT MODE VENT - AC/VC
[2020-05-12] MEDS ORDERED: SODIUM BICARBONATE 8.4% 1 MEQ/ML 50ML SYR IV SCH (10:00)
[2020-05-12] MEDS ORDERED: DEXTROSE 50% WATER 50ML SYRINGE IV SCH (10:00)
[2020-05-12] MEDS ORDERED: INSULIN REGULAR (HUMULIN R) 300UNITS/3ML VIAL IV SCH (10:00)
[2020-05-12] MEDS: FENTANYL CITRATE/PF 2,500 MCG in SODIUM CHLORIDE 0.9% 200 ML IV PRN (10:43)
[2020-05-12] MEDS: NOREPINEPHRINE 32 MG in DEXT 5% WATER 218 ML IV PRN (10:56)
[2020-05-12] MEDS ORDERED: IPRATROPIUM/ALBUTEROL 0.5-3(2.5)MG/3ML NEB HHN PRN (11:30)
[2020-05-12] MEDS ORDERED: CALCIUM GLUCONATE 1GM PREMIX 50 ML IV SCH (12:00)
[2020-05-12] MEDS ORDERED: IPRATROPIUM/ALBUTEROL 0.5-3(2.5)MG/3ML NEB HHN SCH (12:00)
[2020-05-12] MEDS ORDERED: SODIUM POLYSTYRENE SULFONATE 15 G/60 ML BOT PO SCH (12:00)
[2020-05-12] MEDS ORDERED: SODIUM BICARBONATE 100 MEQ in DEXTROSE 5% WATER 1,000 ML IV SCH (13:00)
[2020-05-12] MEDS ORDERED: VASOPRESSIN 20 UNIT in SODIUM CHLORIDE 0.9% 99 ML IV PRN (14:30)
[2020-05-12] MEDS ORDERED: EPINEPHRINE 10 MG in SODIUM CHLORIDE 0.9% 240 ML IV PRN (16:00)
== END 2020-05-12 18:05 | disposition expired | DRG 720 ==
LOC: ER 10:53 → EDBEDREQTM 12:04 → EDBEDREQ 12:04 → EDBEDREQSVC 12:04 → MICUSO 12:41 → EDBEDREQ 12:44 → EDBEDREQTM 12:44 → 7WST 04-22 08:37 → CVICU 05-11 00:15
PROVIDERS: ADMIT Internal Medicine; ATTEND Internal Medicine
PROC: 5A09557 Assistance with Respiratory Ventilation, Greater than 96 Consecutive Hours, Continuous Positive Airway Pressure (ICD-10-PCS; 2020-04-21)
PROC: 5A1945Z Respiratory Ventilation, 24-96 Consecutive Hours (ICD-10-PCS; principal; 2020-05-11)
PROC: 06HY33Z Insertion of Infusion Device into Lower Vein, Percutaneous Approach (ICD-10-PCS; 2020-05-11)
PROC: B54BZZA Ultrasonography of Right Lower Extremity Veins, Guidance (ICD-10-PCS; 2020-05-11)
PROC: 0BH17EZ Insertion of Endotracheal Airway into Trachea, Via Natural or Artificial Opening (ICD-10-PCS; 2020-05-11)
PROC: 5A12012 Performance of Cardiac Output, Single, Manual (ICD-10-PCS; 2020-05-12)
DX: A41.89 Other specified sepsis (principal); U07.1 COVID-19; J96.01 Acute respiratory failure with hypoxia; E66.9 Obesity, unspecified; I25.10 Atherosclerotic heart disease of native coronary artery without angina pectoris; N39.0 Urinary tract infection, site not specified; R65.20 Severe sepsis without septic shock; J12.82 Pneumonia due to coronavirus disease 2019; E87.2 Acidosis; I10 Essential (primary) hypertension; A41.51 Sepsis due to Escherichia coli [E. coli]; E87.5 Hyperkalemia; Z66 Do not resuscitate; N17.0 Acute kidney failure with tubular necrosis; Z68.42 Body mass index [BMI] 45.0-49.9, adult; Z78.9 Other specified health status; Z86.19 Personal history of other infectious and parasitic diseases
CPT/HCPCS: 36415; 36600; 71045; 76770; 80048; 80053; 81003; 82375; 82550; 82553; 82728; 82805; 82962; 83605; 83615; 83880; 84145; 84484; 85025; 85027; 85379; 85384; 86140; 87070; 87077; 87186; 93005; 93970; 94640; 94660; 96365; 99291; C1893; J0456; J0610; J0696; J1100; J1650; J1815; J1940; J2250; J2370; J3010; J3490; J7042; J7050; J7060; J7070; U0003